=== PATIENT | male | born 1985 | race Caucasian/White ===

== ENCOUNTER 2018-04-25 18:30 | Emergency (ER) | payer OTHER ==
[~2018-04-25] VITALS: Ht 182.9 cm; Wt 72.6 kg
[2018-04-25 18:50] VITALS: BP 123/76
--- NOTE | 2018-04-25 18:55 | NUR ---
PT TO ER BED 8
--- NOTE | 2018-04-25 19:12 | NUR ---
33/M PRESENTS TO ED, C/O 06/25 SUDDEN ONSET L SIDED CP, RADIATING TO L ARM WITH NUMBNESS, WHILE DRIVING FROM PT'S FAMILY'S HOME. PT REPORTS SOB. DENIES N/V. REPORTS DRINKING "3 PACK OF TECATE 24OZ" 1.5HR BEFORE ONSET OF SYMPTOMS, REPORTS 1 CUP PER DAY CAFFEINE USE, DENIES SMOKING OR SUBSTANCE ABUSE. PT AOX4, GCS 15, RR EVEN AND UNLABORED. LUNG SOUNDS CLEAR BL. S1S2 PRESENT. HX ANXIETY, DENIES RX.
[2018-04-25] MEDS ORDERED: KETOROLAC 30 MG/ML VIAL IM ONE (20:35)
[2018-04-25 21:06] VITALS: BP 128/74
--- NOTE | 2018-04-25 21:06 | NUR ---
Patient discharged with v/s stable. Written and verbal after care instructions given and explained. Patient verbalized understanding. Ambulatory with steady gait. All questions addressed prior to discharge. Advised to follow up with PMD.
== END 2018-04-25 21:06 | disposition home or self-care (01) ==
LOC: MED 18:30
DX: R07.89 Other chest pain (principal); F41.9 Anxiety disorder, unspecified; Z72.89 Other problems related to lifestyle
CPT/HCPCS: 71045; 96372; 99283; J1885; Q0092; 93005